=== PATIENT | female | born 1955 | race Caucasian/White ===

== ENCOUNTER → 2018-09-20 | Outpatient (CLI) | payer MEDICARE ==
[~2018-09-20] MED LIST: CYCL10 PO; D3-20002000 UNIT PO; ETODOLAC PO; FOLI400 PO; GABA600 PO; METCAR750 PO; MORP60ER PO; MULTI VITAMIN1 EACH PO; OXYACE5T PO; RXOXYACE PO; SUMA25 PO; TRAM50 PO
[2018-09-20 12:31] LABS: Source, Urine Clean Catch
[2018-09-20 15:49] LABS: Bilirubin, Urine Neg (Neg); Blood, Urine Neg (Neg); Glucose Qualitative, Urine Neg (Neg); Ketones, Urine Neg (Neg); Leukocyte Esterase, Urine Neg (Neg); Nitrite, Urine Neg (Neg); Protein, Urine Neg (Neg); Urobilinogen, Urine NORM (Normal)
[2018-09-20 15:54] LABS: Appearance, Urine Clear (Clear); Color, Urine Yellow (P-Yellow)
== END | disposition home or self-care (01) ==
LOC: LAB 12:30 → LAB SHORT 12:30
PROVIDERS: Family Medicine
DX: N39.0 Urinary tract infection, site not specified (principal); N28.1 Cyst of kidney, acquired
CPT/HCPCS: 81003

== ENCOUNTER → 2020-03-18 | Outpatient (CLI) | payer MEDICARE ==
[2020-03-20 08:32] LABS: Stool Occult Bld Immuno 1 Negative (NEGATIVE)
== END | disposition home or self-care (01) ==
LOC: LAB 15:34 → LAB SHORT 15:34
PROVIDERS: Family Medicine
DX: Z12.11 Encounter for screening for malignant neoplasm of colon (principal); E04.2 Nontoxic multinodular goiter
CPT/HCPCS: G0328

== ENCOUNTER → 2024-01-23 | Outpatient (CLI) | payer OTHER ==
[~2024-01-23] MED LIST changes: +BUPRENORPHIN-N1 EAC5 SL; +DOCU100 PO; +IBUP600 PO; +LIDO700A20 TOP; +PSEU120ER PO; +Percocet 5-3251 EACH PO; +RIZATRIPTAN10 MG SL; +Vitamin B-12100 MCG PO; +Voltaren100 GM TOP
[2024-01-23 18:00] LABS: Albumin, Blood 3.9 g/dL (3.4-5.0); Bilirubin, Total 0.5 mg/dL (0.1-1.0); Bun/Creatinine Ratio 24.3 (12.0-20.0); Creatinine, Blood 0.62 mg/dL (0.40-1.00); Globulin, Blood 3.9 g/dL (2.2-4.0); Potassium, Blood 3.7 mmol/L (3.5-5.5); Total Protein, Blood 7.8 g/dL (6.4-8.2)
[2024-01-23 18:03] LABS: BASOPHILS ABSOLUTE AUTO 0.13 K/mm3 (0.00-0.23); BASOPHILS PERCENT AUTO 1 % (0-2); EOSINOPHILS ABSOLUTE AUTO 0.53 K/mm3 (0.00-0.68); EOSINOPHILS PERCENT AUTO 5 % (0-6); Hemoglobin 13.9 g/dL (11.5-16.0); IMMATURE GRAN ABSOLUTE AUTO 0.03 K/mm3 (0.00-0.10); IMMATURE GRAN PERCENT AUTO 0 % (0-1); LYMPHOCYTES ABSOLUTE AUTO 2.99 K/mm3 (0.84-5.20); LYMPHOCYTES PERCENT AUTO 30 % (21-46); MONOCYTES ABSOLUTE AUTO 0.77 K/mm3 (0.16-1.47); MONOCYTES PERCENT AUTO 8 % (4-13); Mean Corpuscular HGB 30.7 pg (26.0-34.0); Mean Corpuscular HGB Conc 33.1 g/dL (31.5-36.5); Mean Corpuscular Volume 93 fL (80-100); Mean Platelet Volume 10.9 fL (9.1-12.4); NEUTROPHILS ABSOLUTE AUTO 5.61 K/mm3 (1.96-9.15); NEUTROPHILS PERCENT AUTO 56 % (41-73); Platelet Count 237 K/mm3 (150-400); RDW Coefficient Variation 12.6 % (11.7-14.2); RDW Standard Deviation 43.2 fL (35.1-46.3); Red Blood Cell Count 4.53 M/mm3 (3.80-5.20); White Blood Cell Count 10.06 K/mm3 (4.00-11.30)
== END ==
LOC: LAB 15:38 → LAB SHORT 15:38
PROVIDERS: Nurse Practitioner Family
DX: E04.1 Nontoxic single thyroid nodule (principal); R63.5 Abnormal weight gain; R73.9 Hyperglycemia, unspecified
CPT/HCPCS: 80053; 83036; 85025

== ENCOUNTER 2025-01-13 22:55 | Observation (INO) | payer OTHER ==
[~2025-01-13] VITALS: Ht 162.6 cm; Wt 85.7 kg
[~2025-01-13 22:55] MED LIST changes: +IBUP200 PO; -IBUP600 PO
[2025-01-13] MEDS ORDERED: EpiNEPhrine 1 MG/1 ML 1ML Vial IM ONE (23:15)
[2025-01-13] MEDS ORDERED: Tranexamic Acid 100 ML IV ONE (23:15)
[2025-01-13 23:22] LABS: BASOPHILS ABSOLUTE AUTO 0.13 K/mm3 (0.00-0.23); BASOPHILS PERCENT AUTO 1 % (0-2); EOSINOPHILS ABSOLUTE AUTO 0.29 K/mm3 (0.00-0.68); EOSINOPHILS PERCENT AUTO 2 % (0-6); Hematocrit 40.4 % (33.0-51.0); Hemoglobin 13.2 g/dL (11.5-16.0); IMMATURE GRAN ABSOLUTE AUTO 0.04 K/mm3 (0.00-0.10); IMMATURE GRAN PERCENT AUTO 0 % (0-1); LYMPHOCYTES ABSOLUTE AUTO 3.78 K/mm3 (0.84-5.20); LYMPHOCYTES PERCENT AUTO 32 % (21-46); MONOCYTES ABSOLUTE AUTO 1.07 K/mm3 (0.16-1.47); MONOCYTES PERCENT AUTO 9 % (4-13); Mean Corpuscular HGB Conc 32.7 g/dL (31.5-36.5); Mean Corpuscular Volume 88 fL (80-100); NEUTROPHILS ABSOLUTE AUTO 6.65 K/mm3 (1.96-9.15); NEUTROPHILS PERCENT AUTO 56 % (41-73); NRBC ABSOLUTE 0.00 K/mm3 (0.00-0.02); NRBC Auto 0.0 /100 WBC (0.0-0.2); Platelet Count 257 K/mm3 (150-400); RDW Coefficient Variation 15.0 % (11.7-14.2); RDW Standard Deviation 48.3 fL (35.1-46.3)
[2025-01-13 23:54] LABS: Alanine Aminotransfer (ALT/SGP 26.0 U/L (12-78); Albumin, Blood 3.8 g/dL (3.4-5.0); Albumin/Globulin Ratio 1.1 (0.8-1.8); Anion Gap 7.0 mmol/L (3-11); Aspartate Aminotrans (AST/SGOT 13.0 U/L (12-37); Bilirubin, Total 0.2 mg/dL (0.1-1.0); Blood Urea Nitrogen 22.0 mg/dL (8-24); CO2, Blood 29.0 mmol/L (21-32); Calcium, Blood 9.2 mg/dL (8.5-10.1); Chloride, Blood 107.0 mmol/L (98-108); Creatinine, Blood 0.73 mg/dL (0.40-1.00); Globulin, Blood 3.6 g/dL (2.2-4.0); Glucose, Blood 98.0 mg/dL (70-99); Potassium, Blood 4.1 mmol/L (3.5-5.5); Sodium, Blood 139.0 mmol/L (136-145); Total Protein, Blood 7.4 g/dL (6.4-8.2)
[2025-01-14] MEDS ORDERED: FLU VACC TS2025-26(6MOS UP)/PF 45 MCG/0.5 ML SYRINGE IM SCH (02:25)
[2025-01-14] MEDS ORDERED: FLU VACC TS2025-26(6MOS UP)/PF 45 MCG/0.5 ML SYRINGE IM ONE (02:25)
[2025-01-14] MEDS ORDERED: Robaxin750 MG (03:06)
[2025-01-14] MEDS ORDERED: GLYC2 PO (03:08)
[2025-01-14 04:18] LABS: BASOPHILS ABSOLUTE AUTO 0.06 K/mm3 (0.00-0.23); BASOPHILS PERCENT AUTO 1 % (0-2); EOSINOPHILS ABSOLUTE AUTO 0.02 K/mm3 (0.00-0.68); EOSINOPHILS PERCENT AUTO 0 % (0-6); Hematocrit 37.2 % (33.0-51.0); Hemoglobin 12.5 g/dL (11.5-16.0); IMMATURE GRAN ABSOLUTE AUTO 0.02 K/mm3 (0.00-0.10); IMMATURE GRAN PERCENT AUTO 0 % (0-1); LYMPHOCYTES ABSOLUTE AUTO 0.85 K/mm3 (0.84-5.20); LYMPHOCYTES PERCENT AUTO 10 % (21-46); MONOCYTES ABSOLUTE AUTO 0.10 K/mm3 (0.16-1.47); MONOCYTES PERCENT AUTO 1 % (4-13); Mean Corpuscular HGB Conc 33.6 g/dL (31.5-36.5); Mean Corpuscular Volume 87 fL (80-100); NEUTROPHILS ABSOLUTE AUTO 7.73 K/mm3 (1.96-9.15); NEUTROPHILS PERCENT AUTO 88 % (41-73); NRBC ABSOLUTE 0.00 K/mm3 (0.00-0.02); NRBC Auto 0.0 /100 WBC (0.0-0.2); Platelet Count 240 K/mm3 (150-400); RDW Coefficient Variation 14.9 % (11.7-14.2); RDW Standard Deviation 47.9 fL (35.1-46.3)
[2025-01-14 04:41] VITALS: BP 149/83
[2025-01-14 04:41] LABS: Alanine Aminotransfer (ALT/SGP 26.0 U/L (12-78); Albumin, Blood 3.6 g/dL (3.4-5.0); Albumin/Globulin Ratio 1.1 (0.8-1.8); Anion Gap 7.0 mmol/L (3-11); Aspartate Aminotrans (AST/SGOT 15.0 U/L (12-37); Bilirubin, Total 0.2 mg/dL (0.1-1.0); Blood Urea Nitrogen 22.0 mg/dL (8-24); CO2, Blood 25.0 mmol/L (21-32); Calcium, Blood 9.2 mg/dL (8.5-10.1); Chloride, Blood 107.0 mmol/L (98-108); Creatinine, Blood 0.61 mg/dL (0.40-1.00); Globulin, Blood 3.4 g/dL (2.2-4.0); Glucose, Blood 147.0 mg/dL (70-99); Potassium, Blood 3.9 mmol/L (3.5-5.5); Sodium, Blood 135.0 mmol/L (136-145); Total Protein, Blood 7.0 g/dL (6.4-8.2)
[2025-01-14 07:43] VITALS: BP 136/73
[2025-01-14] MEDS ORDERED: Enoxaparin 40 MG/0.4 ML SYR SC SCH ×2 (09:00)
[2025-01-14] MEDS ORDERED: DiphenhydrAMINE HCl 50 MG/ML 1ML Vial IV PRN ×2 (09:00)
--- NOTE | 2025-01-14 09:33 | NUR ---
am note this rn assumed care at 0700. vital signs stable. tele sinus rhythm. patient is alert and orineted x4. neuro is intact. perrla. patient is able to make needs known and uses call light appropriately. patient is independent in adls. patient has lower lip edema and left cheek edema. patient has a picture on cellphone from what it looked like previously and has improved since initial event. patient lung sounds clear.see shift assessment for further detials. md villarreal in room around 0820 and discussed plan to possibly discharge this afternoon if lip continues to improve. patient verbalized understanding.
[2025-01-14 11:00] VITALS: BP 134/73
[2025-01-14] MEDS ORDERED: EPIPEN0.3 MG/0.3 IM (11:15)
[2025-01-14] MEDS ORDERED: FAMO20 PO (11:15)
[2025-01-14] MEDS ORDERED: DIPH25 PO (11:15)
--- NOTE | 2025-01-14 12:19 | NUR ---
discharge note this rn went over new medications and purpose for each medication. this rn went over importance to follow up with pcp and call to make that appointment. this rn went over angioedema and what to do if symptoms return or become worse. patient verbalized understanding. patient vital signs stable.
[2025-01-16 13:49] LABS: COMPLEMENT COMPONENT 4 28 mg/dL (10-40)
== END 2025-01-14 12:34 | disposition home or self-care (01) ==
LOC: ER 22:55 → PCU 22:56 → ER 01-14 02:36 → PCU 01-14 02:43
PROVIDERS: Student in an Organized Health Care Education/Training Program; ADMIT Internal Medicine
DX: T78.3XXA Angioneurotic edema, initial encounter (principal); G89.29 Other chronic pain; M54.9 Dorsalgia, unspecified; Z88.0 Allergy status to penicillin; Z88.5 Allergy status to narcotic agent; Z91.048 Other nonmedicinal substance allergy status; Z88.8 Allergy status to other drugs, medicaments and biological substances
CPT/HCPCS: 36415; 36430; 80053; 85025; 86160; 86850; 86900; 86901; 96372; 96374; 96375; 99284-25; A9270; G0378; J0169; J2919; J7120; P9059

== ENCOUNTER 2025-01-17 06:33 | Observation (INO) | payer OTHER ==
[~2025-01-17] VITALS: Ht 162.6 cm; Wt 87.3 kg
[~2025-01-17 06:33] MED LIST changes: +DIPH25 PO; +EPIPEN0.3 MG/0.3 IM; +FAMO20 PO; +GLYC2 PO; +Robaxin750 MG
[2025-01-17 07:13] LABS: BASOPHILS ABSOLUTE AUTO 0.11 K/mm3 (0.00-0.23); BASOPHILS PERCENT AUTO 1 % (0-2); EOSINOPHILS ABSOLUTE AUTO 0.24 K/mm3 (0.00-0.68); EOSINOPHILS PERCENT AUTO 2 % (0-6); Hematocrit 44.6 % (33.0-51.0); Hemoglobin 14.9 g/dL (11.5-16.0); IMMATURE GRAN ABSOLUTE AUTO 0.03 K/mm3 (0.00-0.10); IMMATURE GRAN PERCENT AUTO 0 % (0-1); LYMPHOCYTES ABSOLUTE AUTO 3.20 K/mm3 (0.84-5.20); LYMPHOCYTES PERCENT AUTO 31 % (21-46); MONOCYTES ABSOLUTE AUTO 0.79 K/mm3 (0.16-1.47); MONOCYTES PERCENT AUTO 8 % (4-13); Mean Corpuscular HGB Conc 33.4 g/dL (31.5-36.5); Mean Corpuscular Volume 88 fL (80-100); NEUTROPHILS ABSOLUTE AUTO 6.12 K/mm3 (1.96-9.15); NEUTROPHILS PERCENT AUTO 58 % (41-73); NRBC ABSOLUTE 0.00 K/mm3 (0.00-0.02); NRBC Auto 0.0 /100 WBC (0.0-0.2); Platelet Count 264 K/mm3 (150-400); RDW Coefficient Variation 14.9 % (11.7-14.2); RDW Standard Deviation 47.8 fL (35.1-46.3)
[2025-01-17] MEDS ORDERED: Tranexamic Acid 100 ML IV ONE (07:25)
[2025-01-17] MEDS ORDERED: DiphenhydrAMINE HCl 50 MG/ML 1ML Vial IV ONE (07:25)
[2025-01-17 07:31] LABS: Alanine Aminotransfer (ALT/SGP 27.0 U/L (12-78); Albumin, Blood 3.9 g/dL (3.4-5.0); Albumin/Globulin Ratio 1.0 (0.8-1.8); Anion Gap 11.0 mmol/L (3-11); Aspartate Aminotrans (AST/SGOT 20.0 U/L (12-37); Bilirubin, Total 0.4 mg/dL (0.1-1.0); Blood Urea Nitrogen 21.0 mg/dL (8-24); CO2, Blood 23.0 mmol/L (21-32); Calcium, Blood 9.7 mg/dL (8.5-10.1); Chloride, Blood 106.0 mmol/L (98-108); Creatinine, Blood 0.62 mg/dL (0.40-1.00); Globulin, Blood 3.9 g/dL (2.2-4.0); Glucose, Blood 116.0 mg/dL (70-99); Potassium, Blood 3.8 mmol/L (3.5-5.5); Sodium, Blood 136.0 mmol/L (136-145); Total Protein, Blood 7.8 g/dL (6.4-8.2)
[2025-01-17] MEDS ORDERED: EpiNEPhrine 1 MG/1 ML 1ML Vial IM ONE (07:35)
[2025-01-17] MEDS ORDERED: NS 1,000 ML IV ONE (08:28)
[2025-01-17] MEDS ORDERED: FLU VACC TS2025-26(6MOS UP)/PF 45 MCG/0.5 ML SYRINGE IM ONE (11:40)
[2025-01-17] MEDS ORDERED: Ondansetron HCl 2 MG / ML 2ML Vial IV PRN (11:40)
[2025-01-17 12:58] VITALS: BP 156/96
[2025-01-17] MEDS ORDERED: SENN187 PO (13:18)
[2025-01-17] MEDS ORDERED: MAGCIT300 PO (13:19)
[2025-01-17] MEDS ORDERED: THERA-D2000 UNIT PO (13:20)
[2025-01-17] MEDS ORDERED: BUPRENORPHINE HC2 MG SL (13:22)
--- NOTE | 2025-01-17 14:33 | NUR ---
ADMISSION NOTE PT ARRIVED VIA RNEY FROM ED AT ABOUT 1250. TRANSFERRED FROM [facility] TO HOSP BED INDEPENDENTLY WITH STEADY GAIT. PT IS A&O X4, COOPERATIVE WITH CARE AND APPROPRIATELY EXPRESSES NEEDS. SHE IS SATTING ABOVE 93% ON RA AND DENIES SOB OR DYSPNEA. FACIAL SWELLING NOT APPARENT WHILE FACING PATIENT, BUT VISIBLE SWELLING NOTED TO BE PRESENT ON L. SIDE UPON ASSESSMENT OF INNER MOUTH. PT STATES SWELLING HAS IMPROVED SINCE SHE WAS IN THE ER AND THAT SHE HAS NO PAIN AT THE AFFECTED AREA. HR IN SR 90s WITH STABLE BPs. PTs SISTER IS AT BEDSIDE AND UPDATED ON CARE. DR. MILLER ON UNIT, THIS RN INQUIRED ABOUT PRN MEDICATIONS IN CASE OF PAIN OR INCREASED SWELLING, NO NEW ORDERS AT THIS TIME.
[2025-01-17 15:28] VITALS: BP 136/87
[2025-01-17] MEDS ORDERED: DiphenhydrAMINE HCl 50 MG/ML 1ML Vial IV PRN (15:55)
[2025-01-17] MEDS ORDERED: Acetaminophen 160MG / 5ML 10.15 UDC PO PRN (16:15)
[2025-01-17] MEDS ORDERED: Rizatriptan Benzoate 10 MG / TAB SoluTab SL PRN (16:55)
--- NOTE | 2025-01-17 18:46 | NUR ---
END OF SHIFT UPDATES PT COMPLAINED OF MOUTH AND THROAT DISCOMFORT SHE DESCRIBED "SCRATCHINESS". SHE DENIED FEELING OF INCREASED SWELLING OR TIGHTNESS IN THE AREA. TYLENOL ELIXIR GIVEN PER DR. MILLER'S ORDERS AND PT STATED DISCOMFORT WAS RELIEVED. PT ALSO COMPLAINED OF CHRONIC MUSCLE CRAMPS, MEDICATED PER EMAR. SHE ALSO REPORTED THAT SHE HAS A SPINE STIMULATOR, DISCUSSED WITH CHARGE NURSE. PTs SISTER HAS BEEN AT BEDSIDE AND UPDATED ON CARE. SEE NOTES FOR UPDATES.
[2025-01-17 19:28] VITALS: BP 125/75
[2025-01-17] MEDS ORDERED: Lidocaine 4% 1 Patch TOP SCH (19:36)
[2025-01-17] MEDS ORDERED: Magnesium Citrate 300 ML BTL PO SCH (21:00)
[2025-01-17 23:06] VITALS: BP 117/55
[2025-01-18 04:50] VITALS: BP 115/59
--- NOTE | 2025-01-18 05:13 | NUR ---
SHIFT SUMMARY PT REMAINED A/OX4, ENDORSED CHRONIC BACK PAIN AND HEADACHE, TREATED PER EMAR. ON CONTINUOUS CARDIAC TELEMETRY, DENIED CHEST PAIN/PRESSURE, VSS. ON RA AND SATS ABOVE 95%, BREATHING IS UNLABORED AND EVEN. PT DENIED ANY FURTHER PHARYNGEAL SWELLING OR ORAL TINGLING/NUMBNESS. SHE REMAINED INDEPENDENT IN THE ROOM, CALLING APPROPRIATELY AND VERBALIZING NEEDS.
[2025-01-18 08:33] VITALS: BP 121/67
[2025-01-18] MEDS ORDERED: Lidocaine 4% 1 Patch TOP SCH (09:00)
[2025-01-18] MEDS ORDERED: Multivitamins 1 Tab PO SCH (09:00)
[2025-01-18] MEDS ORDERED: Enoxaparin 40 MG/0.4 ML SYR SC SCH (09:00)
[2025-01-18] MEDS ORDERED: Cholecalciferol 1000 Unit Tablet (=25MCG) PO SCH (09:00)
[2025-01-18] MEDS ORDERED: ZYRTEC10 M2 PO (10:49)
[2025-01-18] MEDS ORDERED: PRED20 PO (10:51)
[2025-01-18 11:42] VITALS: BP 139/66
--- NOTE | 2025-01-18 11:54 | NUR ---
DISCHARGE SUMMARY PT REMAINS A&O X4, COOPERATIVE, AND ABLE TO EXPRESS NEEDS. IND IN RM. SHE HAS MAINTAINED O2 SATS OVER 93% ON ROOM AIR AND DENIES SOB OR DYSPNEA. SR/ ST SUSTAINED AT 90-100s ON TELE AND BPs STABLE WITH MAPS OVER 65. PT DENIES ANY CHEST PAIN/ PRESSURE. SWELLING IN PTs MOUTH IS STILL PRESENT BUT REDUCED SINCE YESTERDAY, NO COMPLAINTS OF PAIN. PATIENT REPORTS FEELING A LOT BETTER THAN YESTERDAY. DISCHARGE EDUCATION PROVIDED AND DISCUSSED WITH PATIENT AND HER SISTER IN THE ROOM, INCLUDING HOW TO SCHEDULE FOLLOW UP W/ PCP AND TO REQUEST AN ALLERGEN TEST. PT BELONGINGS GATHERED IN BELONGINGS BAG. PT IS FINISHING HER LUNCH AND WILL BE TAKEN TO PARKING LOT WITH BELONGINGS BY [employer] DRIVER WHEN SHE IS DONE. NO FURTHER NOTES FROM THIS RN.
[2025-01-19 10:45] LABS: COMPLEMENT COMPONENT 4 28 mg/dL (10-40)
== END 2025-01-18 12:00 | disposition home or self-care (01) ==
LOC: ER 06:33 → PCU 06:34
PROVIDERS: Student in an Organized Health Care Education/Training Program; ADMIT Family Medicine
DX: T78.3XXA Angioneurotic edema, initial encounter (principal); G89.29 Other chronic pain; M54.9 Dorsalgia, unspecified; Z79.899 Other long term (current) drug therapy; Z88.0 Allergy status to penicillin; Z88.5 Allergy status to narcotic agent; Z88.8 Allergy status to other drugs, medicaments and biological substances; Z91.038 Other insect allergy status; Z91.048 Other nonmedicinal substance allergy status
CPT/HCPCS: 36415; 70491; 80053; 85025; 86160; 86900; 86901; 93005; 93010; A9270; J0166; J0169; J1200; J1650; J2919; J7030; P9059; Q9967